=== PATIENT | female | born 1985 | race Caucasian/White ===

== ENCOUNTER 2017-02-10 19:34 | Emergency (ER) | payer OTHER ==
[~2017-02-10] VITALS: Ht 165.1 cm; Wt 122.5 kg
[2017-02-10 19:39] VITALS: BP 150/98
[2017-02-10] MEDS ORDERED: DIAZ5TAB PO (20:15)
[2017-02-10] MEDS ORDERED: FAMO-63 PO (20:15)
[2017-02-10] MEDS ORDERED: NAPR-683 PO (20:15)
--- NOTE | 2017-02-10 20:15 | PHYS DOC ---
Past History Past Medical History: No Pertinent History Past Surgical History: Alcohol Use: Occasionally Drug Use: None Adult General Chief Complaint Chief Complaint: FACE PROBLEM HPI HPI Patient is a pleasant otherwise healthy 31-year-old female who on Friday night was trying to ride a however board when she slipped and fell landing on carpeted floors with her friend. She struck the back of her head and her shoulder blade. There is no loss of consciousness no focal neurologic deficit noted complain of neck pain after the fall. That was 3 days ago. Patient woke up this morning with some mild facial pain emanating from the ear, jaw to across the lower portion of the face. She also noted she had intensely bad halitosis and a mild sore throat. Patient says she frequent has symptoms like this in the mornings. Although this is not gotten progressively worse she is worried is associated with the fall. At this point she has minimal pain in her upper back shoulder and has no headache. Patient denies any other injuries. Patient denies any change in voice, fevers, chills, cough, runny nose, URI symptoms or problems swallowing. Patient thought also made her symptoms are related to her wisdom teeth coming in. Review of Systems Review of Systems Constitutional: Denies fever or chills [] Eyes: Denies change in visual acuity, redness, or eye pain [] HENT: Denies nasal congestion or sore throat patient does complain of bad halitosis and mild soreness to the right TMJ[] Respiratory: Denies cough or shortness of breath [] Cardiovascular: No additional information not addressed in HPI [] GI: Denies abdominal pain, nausea, vomiting, bloody stools or diarrhea [] : Denies dysuria or hematuria [] Musculoskeletal: Denies back pain or joint pain [] Integument: Denies rash or skin lesions [] Neurologic: Denies headache, focal weakness or sensory changes [] Endocrine: Denies polyuria or polydipsia [] All other systems were reviewed and found to be within normal limits, except as documented in this note. Current Medications Current Medications Current Medications Medications (Trade) Dose Ordered Sig/Osman Start Time Stop Time Status Last Admin Dose Admin Famotidine (Pepcid) 20 mg 1X ONCE 02/10/17 20:15 02/10/17 20:16 UNV Naproxen (Naprosyn) 500 mg 1X ONCE 02/10/17 20:15 02/10/17 20:16 UNV Physical Exam Physical Exam Other vital signs recorded on the chart within normal limits Constitutional: Well developed, well nourished, no acute distress, non-toxic appearance. She is obese[] HENT: Normocephalic, atraumatic, bilateral external ears normal, oropharynx moist, no oral exudates, nose normal. She has no tonsillar hypertrophy, no evidence of tonsillar crypts, she has no erythema, no halitosis as I can perceive. She has tenderness to palpation over the right TMJ. There is no soft tissue swelling, no evidence of [place] angina or anterior cervical lymphadenopathy. Patient's TMs bilaterally are clear with no evidence of basal skull fracture. There is no raccoon sign or Lunsford sign. [] Eyes: PERRLA, EOMI, conjunctiva normal, no discharge. [] Neck: Normal range of motion, no tenderness, supple, no stridor. [] Cardiovascular:Heart rate regular rhythm, no murmur [] Lungs & Thorax: Bilateral breath sounds clear to auscultation [] Skin: Warm, dry, no erythema, no rash. [] Back: No tenderness, Extremities: No tenderness, no cyanosis, no clubbing, ROM intact, no edema. [] Neurologic: Alert and oriented X 3, normal motor function, normal sensory function, no focal deficits noted. [] Psychologic: Affect normal, judgement normal, mood normal. [] Current Patient Data Vital Signs Vital Signs Date Time Temp Pulse Resp B/P (MAP) Pulse Ox O2 Delivery O2 Flow Rate FiO2 02/10/17 19:39 98.0 100 16 100 Room Air EKG EKG [] Radiology/Procedures Radiology/Procedures [] Course & Med Decision Making Course & Med Decision Making Pertinent Labs and Imaging studies reviewed. (See chart for details) []This patient presents today with a fall from standing after riding however board 3 days ago. Although her complaint today of her jaw pain and said that breath. I nothing to do with her particular injury. I believe that her reflux and bad breath as well as TMJ abducted with the fall. She has no evidence of LeFort's fracture facial injury, she has no midline tenderness to palpation of the C-spine she has no bony tenderness over any prominence. No CT scan of the head neck is required today patient is given medications for her reflux we talked about dietary changes as well. Patient also referred to dental for possible bite block and evaluation for sleep apnea. discharge: I've spoken with the patient and/or caregivers. I've explained the patient's condition, diagnosis and treatment plan based on information available to me at this time. I've answered the patient's and/or caregivers questions and addressed any concerns. The patient and/or caregivers have a good understanding the patient's diagnosis, condition and treatment plan as can be expected at this point. Vital signs have been stabilized. The patient's condition is stable for discharge from the emergency department. The patient will pursue further outpatient evaluation with her primary care provider or other designated consulting physician as outlined in the discharge instructions. Patient and/or caregivers are agreeable to this plan of care and follow-up instructions have been explained in detail. The patient and/or caregivers have received these instructions in written format and expressed understanding of these discharge instructions. The patient and her caregivers are aware that if any significant change in condition or worsening of symptoms should prompt him to immediately return to this of the closest emergency department. If an emergent department is not readily available I would encourage him to call 911. Dragon Disclaimer Dragon Disclaimer This electronic medical record was generated, in whole or in part, using a voice recognition dictation system. Departure Departure: Impression: Primary Impression: TMJ (temporomandibular joint syndrome) Additional Impressions: GERD (gastroesophageal reflux disease) Fall Disposition: 01 HOME, SELF-CARE Condition: STABLE Referrals: ARNALDO ARTEAGA MD (PCP) Patient Instructions: Diet for Gastroesophageal Reflux Disease, Adult, Gastroesophageal Reflux Disease, Adult, Temporomandibular Joint Pain-Brief, Temporomandibular Problems Additional Instructions: discharge: I've spoken with the patient and/or caregivers. I've explained the patient's condition, diagnosis and treatment plan based on information available to me at this time. I've answered the patient's and/or caregivers questions and addressed any concerns. The patient and/or caregivers have a good understanding the patient's diagnosis, condition and treatment plan as can be expected at this point. Vital signs have been stabilized. The patient's condition is stable for discharge from the emergency department. The patient will pursue further outpatient evaluation with her primary care provider or other designated consulting physician as outlined in the discharge instructions. Patient and/or caregivers are agreeable to this plan of care and follow-up instructions have been explained in detail. The patient and/or caregivers have received these instructions in written format and expressed understanding of these discharge instructions. The patient and her caregivers are aware that if any significant change in condition or worsening of symptoms should prompt him to immediately return to this of the closest emergency department. If an emergent department is not readily available I would encourage him to call 911. Scripts Famotidine (PEPCID) 20 Mg Tablet 1 TAB PO BID, #20 TAB 3 Refills Prov: LAMONT RASCON MD 02/10/17 Diazepam (VALIUM) 5 Mg Tablet 5 MG PO TID for 5 Days, #15 TAB Please use one tablet every 8 hours as needed for muscle spasms. Do not drink alcohol or use other narcotics with this medication. Prov: LAMONT RASCON MD 02/10/17 Naproxen (NAPROSYN) 500 Mg Tablet 1 TAB PO BID, #20 TAB 1 Refill Prov: LAMONT RASCON MD 02/10/17 Problem Qualifiers LAMONT RASCON MD Feb 10, 2017 20:15
[2017-02-10] MEDS ORDERED: FAMOTIDINE 20 MG TABLET PO ONE (20:45)
[2017-02-10] MEDS ORDERED: NAPROXEN 500 MG TABLET PO ONE (20:45)
== END 2017-02-10 20:35 | disposition home or self-care (01) ==
LOC: ER 19:34
DX: M26.609 Unspecified temporomandibular joint disorder, unspecified side (principal); K21.9 Gastro-esophageal reflux disease without esophagitis; M54.2 Cervicalgia; M54.6 Pain in thoracic spine; W01.198A Fall on same level from slipping, tripping and stumbling with subsequent striking against other object, initial encounter; Y93.89 Activity, other specified; Y99.8 Other external cause status; Y92.89 Other specified places as the place of occurrence of the external cause
CPT/HCPCS: 99283